=== PATIENT | male | born 1980 | race Two or more races ===

== ENCOUNTER 2018-01-25 06:49 | Day surgery (SDC) | payer OTHER ==
[2018-01-25] VITALS (8 sets, daily range): BP systolic 112–126; BP diastolic 70–78
[~2018-01-25] VITALS: Ht 188 cm; Wt 79.4 kg
[~2018-01-25 06:49] MED LIST: OMEPRAZOLE40 M1 ORAL; ONDANSETRON HCL4 M1 ORAL
[2018-01-25] MEDS ORDERED: Midazolam 2mg/2ml Inj IVP PRN (07:00)
[2018-01-25] MEDS ORDERED: DiphenhydrAMINE 50mg/ml Inj IVP PRN (07:00)
[2018-01-25] MEDS ORDERED: LR 1000ml 1,000 ML IVLG SCH (07:00)
[2018-01-25] MEDS ORDERED: fentaNYL 100 mcg/2 mL IV PRN (07:00)
[2018-01-25] MEDS ORDERED: Atropine Inj 1mg/10ml Syr IV PRN (07:00)
--- NOTE | 2018-01-25 07:00 | Anethesia Preoperative Eval ---
Anesthesia Pre-op PMH/ROS General Date of Evaluation: Jan 25, 2018 Time of Evaluation: 06:57 Anesthesiologist: franky ASA Score: ASA 2 Mallampati Score Class I : Soft palate, uvula, fauces, pillars visible Class II: Soft palate, uvula, fauces visible Class III: Soft palate, base of uvula visible Class IV: Only hard plate visible Mallampati Classification: Class II Surgeon: mirta Diagnosis: gerd Surgical Procedure: egd Anesthesia History: none Social History: smoking - nonsmoker Family History: no anesthesia problems Allergies: Coded Allergies: No Known Allergies (Unverified , 01/24/18) Medications: see eMAR Patient NPO?: Yes Past Medical History Gastrointestinal/Genitourinary: Reports: GERD, other - weight loss, left inguinal hernia, vomiting x one year Neurologic/Psychiatric: Reports: depression/anxiety, other - head trauma, concussion Musculoskeletal/Integumentary: Reports: other - lumbar surgery Anesthesia Pre-op Phys. Exam Physician Exam Last Vital Signs Date Time Temp Pulse Resp B/P (MAP) Pulse Ox O2 Delivery O2 Flow Rate FiO2 01/25/18 07:13 Room Air 01/25/18 07:11 97.7 70 18 126/76 99 Constitutional: NAD Neurologic: CN 2-12 intact Cardiovascular: RRR Respiratory: CTA Gastrointestinal: S/NT/ND Airway Exam Mallampati Score: Class II MO: full Neck: flexible TMD: 2fb ROM: full Teeth: intact Anesthesia Pre-op A/P Risk Assessment & Plan Assessment: asa2 Plan: mac Status Change Before Surgery: No Pre-Antibiotics Drug: Juli Ward MD Jan 25, 2018 07:00
[2018-01-25] MEDS ORDERED: LR 1000ml ONE (07:30)
[2018-01-25] MEDS ORDERED: Lidocaine 1% MPF 10mg/ml 5ml ONE (07:30)
[2018-01-25] MEDS ORDERED: Propofol 200mg/20ml IV ONE (07:30)
--- NOTE | 2018-01-25 07:47 | Short Stay Surgery H&P ---
History of Present Illness History of Present Illness Chief Complaint Patient has had abdominal pains and acid reflux symptoms. KEITH Shea is a 37 year old male who was admitted on for GERDS/abdominal pains Patient History Allergies: Coded Allergies: No Known Allergies (Unverified , 01/24/18) PAST MEDICAL HISTORY: (1) The administrative codes within the [employer] content you are accessing may have as of 11/12/2017. Please contact your IT Dept/Help Desk and request the latest Regulatory release be installed. IT Dept/Help Desk- Please refer to our FAQ page ([email or web address]) or contact [employer] Customer Support at [email or web address] (2) Lumbar disc lesion Medication History Scheduled Omeprazole (Omeprazole), 40 MG ORAL DAILY, (Reported) Scheduled PRN Ondansetron Hcl (Ondansetron Hcl), 4 MG ORAL Q6H PRN for Nausea & Vomiting, ( Reported) Review of Systems Cardiovascular: Reports: no symptoms Respiratory: Reports: no symptoms Skeletal: Reports: trauma Gastrointestinal: Reports: gastro esophageal reflux disease Genitourinary: Reports: no symptoms Neurologic: Reports: no symptoms Endocrine: Reports: no symptoms Hematologic: Reports: no symptoms Physical Exam Vital Signs Last Vital Signs Date Time Temp Pulse Resp B/P (MAP) Pulse Ox O2 Delivery O2 Flow Rate FiO2 01/25/18 07:13 Room Air 01/25/18 07:11 97.7 70 18 126/76 99 Skin: normal HENT: normal Heart: normal Lungs: normal Abdomen: abnormal Extremities: normal Genitourinary: normal Plan Plan of Care Upper Gi endoscopy with biopsy Preop Interventions None. Summary of Findings See the reports Attestation Are the patient's medical conditions optimized for surgery? Attestation Response: yes Mel Cummings MD Jan 25, 2018 07:47
--- NOTE | 2018-01-25 07:48 | Pre-Procedure Note/Attestation ---
Pre-Procedure Note/Attestation Complete Prior to Procedure Planned Procedure: left Procedure Narrative: Endoscopic exam of the upper GI tract and biopsy Indications for Procedure Pre-Operative Diagnosis: R/O Peptic Ulcer/gastritis Attestation I attest that I discussed the nature of the procedure; its benefits; risks and complications; and alternatives (and the risks and benefits of such alternatives ), prior to the procedure, with the patient (or the patient's legal sales promotion representative). I attest that, if there was a reasonable possibility of needing a blood transfusion, the patient (or the patient's legal sales promotion representative) was given the [facility] standardized written summary, pursuant to the Zack Kiran Blood Safety Act ([place] Health and Safety Code # 1645, as amended). I attest that I re-evaluated the patient just prior to the surgery and that there has been no change in the patient's H&P, except as documented below: Mel Cummings MD Jan 25, 2018 07:48
--- NOTE | 2018-01-25 08:05 | Endoscopy Procedure Note ---
Endoscopy Procedure Note General Indication for Procedure: Abdominal oains and GERDs Procedures Performed: EGD - Completely normal GI endoscopy. A random biopsy from gastric body obtained. Specimen: yes Pt Tolerated Procedure Well: Yes Estimated Blood Loss: none Anesthesia Anesthesiologist: Dr. Rajan Anesthesia: moderate sedation Medications Medication Given: see anesthesia record Inserted Devices Implant(s) used?: No Quality Quality of Bowel Preparation: Excellent Was there any complications?: No GI Core Measures 50 yrs or older w/o bx or poly: Not Applicable 10yrs. F/U not recommended: Not Applicable If not recommended, why?: Med reason:<3 yrs.: System Reason:<3 yrs.: Mel Cummings MD Jan 25, 2018 08:05
--- NOTE | 2018-01-25 08:06 | Discharge Instructions ---
Discharge Instructions Discharge Instructions Follow up with: Visit the doctor in office after 2 weeks. For Congestive Heart Failure Reminder Report to your physician any weight gain of 5 pounds or more in one week. Mel Cummings MD Jan 25, 2018 08:06
--- NOTE | 2018-01-25 08:24 | Immediate Post-Op Evaluation ---
Immediate Post-Op Evalulation Immediate Post-Op Evalulation Procedure: egd w/bx Date of Evaluation: Jan 25, 2018 Time of Evaluation: 08:24 IV Fluids: lr 450ml Blood Products: none Estimated Blood Loss: negligible Blood Pressure Systolic: 124 Blood Pressure Diastolic: 78 Pulse Rate: 58 Respiratory Rate: 18 O2 Sat by Pulse Oximetry: 99 Temperature (Fahrenheit): 97.7 Pain Score (1-10): 0 Nausea: No Vomiting: No Complications none Patient Status: awake, reacts, patent Hydration Status: adequate Drug: Juli Ward MD Jan 25, 2018 08:24
--- NOTE | 2018-01-25 08:26 | 48 Hour Post Anesthesia Eval ---
Post Anesthesia Evaluation Procedure: egd w/bx Date of Evaluation: Jan 25, 2018 Time of Evaluation: 08:26 Blood Pressure Systolic: 122 0: 82 Pulse Rate: 58 Respiratory Rate: 18 Temperature (Fahrenheit): 97.7 O2 Sat by Pulse Oximetry: 99 Airway: patent Nausea: No Vomiting: No Pain Intensity: 0 Hydration Status: adequate Cardiopulmonary Status: stable Mental Status/LOC: patient returned to baseline Post-Anesthesia Complications: none Follow-up care needed: N/A Juli Thacker MD Jan 25, 2018 08:26
--- NOTE | 2018-01-25 18:00 | Pre-op HX & Phy Repo 2 SIG ---
DATE OF ADMISSION: 01/25/2018 HISTORY OF PRESENT ILLNESS: The patient is a 37-year-old gentleman, who is being seen prior to undergoing the procedure of upper GI endoscopy for which, he has been scheduled to receive for evaluation of his gastrointestinal symptoms that he has developed subsequent to his work injury. 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 However, he lifted heavy object and subsequently started to experience significant pain over the lower dorsal lumbar area and received MRI examination and finally was diagnosed to have disk disease and was operated as such. He also was prescribed multiple medications including strong analgesics and anti-inflammatory agents such as ibuprofen, etc. At this time, he is reporting that since he was injured and was given different medications, he started to have nausea, vomiting, lack of appetite, and lost significant amount of weight approximately 50 pounds. As he had developed significant anxiety and stress, he has been seen by psychologist and his major problem at this time has been significant depression, which affects his appetite and his daily activities. He also reported that he started to use the cannabis and marijuana for his vomiting as well. He denies any hematemesis, melena, hematochezia, or GI bleeding. As I mentioned, he has lost weight because he had lost his appetite. Therefore, the applicant has been scheduled to undergo the procedure of upper GI endoscopy to rule out basically acid-induced gastropathy, which might be responsible for his upper GI symptoms. PAST MEDICAL HISTORY: Basically none significant. He denies hypertension, hyperlipidemia, diabetes, etc. PAST SURGICAL HISTORY: The applicant has had history of inguinal hernia operation and also disc operation for dorsal lumbar pathology as I mentioned with fusion also. These procedures have been done in 2009 and 2012. ALLERGIES: Nonsignificant. Childhood disease as usual. HABITS: The applicant reports that he drinks occasionally beer and he does not smoke. FAMILY HISTORY: None significant. REVIEW OF SYSTEMS: Basically history of present illness, otherwise unremarkable. PHYSICAL EXAM: GENERAL: Reveals an alert and oriented gentleman, does not seem to be in any acute distress. VITAL SIGNS: All stable. HEENT: Normocephalic. Pupils equal in size and reactive to light and accommodation. No jaundice. Buccal cavity, tongue midline, well hydrated. No ulcers. NECK: Supple. No JVD, thyromegaly, or adenopathy. CHEST: Clear to auscultation and percussion. No rales or rhonchi. HEART: S1, S2 normal. Regular rhythm. No gallops or murmur. ABDOMEN: Soft. There is mild tenderness and nonspecific over the different parts of the abdomen, but very mild. As I mentioned, there is no organomegaly and no masses noted. EXTREMITIES: Unremarkable. SKIN AND LYMPHATICS: Unremarkable. PRELIMINARY PREOPERATIVE IMPRESSION: 1. History of nausea and periodic vomiting of uncertain etiology, rule out NSAID-induced gastropathy, rule out peptic ulcer disease, gastritis, etc. 2. Significant nausea and lack of appetite and weight loss of uncertain etiology, rule out possibly related to psychological factors, depression caused by the history of work accident. 3. Gastroesophageal acid reflux aggravated by side effects of NSAID medications. 4. Anxiety and depression. 5. History of bodily injury of dorsolumbar disc status post operation. RECOMMENDATION: This gentleman, at this time, seems to be stable to undergo the procedure of upper GI endoscopy for which he has been scheduled to receive for further evaluation of his possible causes of condition that could help reduce significant loss of appetite and weight loss with nausea and vomiting episodes. He understands the risks and benefits and will sign the consent. Said Gomez Cummings DR: LOPEZ JOB#: [id number] CC: LILIANA
--- NOTE | 2018-01-25 18:00 | Operative Note - Dictated ---
DATE OF OPERATION: 01/25/2018 SURGEON: Mel Cummings M.D. PROCEDURE: Esophagogastroduodenoscopy with biopsy. PREOPERATIVE DIAGNOSES: Abdominal pain, nausea, vomiting, heartburn, and significant weight loss. POSTOPERATIVE DIAGNOSIS: Completely normal upper GI endoscopy. Biopsy was taken per random from gastric body. MEDICATION USED: Per Dr. Rajan, anesthesiologist. INSTRUMENT: GIF Olympus upper GI video endoscope. DESCRIPTION OF PROCEDURE: The patient after arriving at endoscopy unit, was told about risks and benefits of the procedure, which he accepted and signed informed consent. He was then put on the left lateral decubitus position. After adequate IV sedation, the scope was gently passed through the cricopharyngeal area, was lodged into the upper esophagus and gradually advanced towards gastroesophageal junction. The entire length of esophagus looked completely normal without any pathology. GE junction also was likewise completely normal. No evidence of hiatal hernia or Benjamin's. At this time, the scope was advanced into the stomach and gastric cavity was distended with insufflation of air. The areas of the fundus and the body and the antrum were examined in an electrician apprentice powerhouse fashion, which revealed basically normal mucosal coverage without any ulcers, tumors, polyps, strictures, bleeding sites, etc. A retroflexion maneuver was also applied and the gastroesophageal junction was examined in a closer fashion, which also revealed no pathology. Finally, one random biopsy from gastric body was obtained and subsequently, the scope was passed through the body of the stomach and from pyloric area. First and second portion of duodenum were all found to be completely normal. At this time, the scope was pulled out and the procedure was terminated. The patient tolerated the procedure well and left the endoscopy room in a good condition. Mel Cummings M.D. DR: LOPEZ JOB#: [id number] CC:
== END 2018-01-25 09:55 | disposition home or self-care (01) ==
LOC: GAS 06:49
DX: K29.50 Unspecified chronic gastritis without bleeding (principal); K21.9 Gastro-esophageal reflux disease without esophagitis; R11.2 Nausea with vomiting, unspecified; R12 Heartburn; R63.4 Abnormal weight loss; F41.9 Anxiety disorder, unspecified; F32.9 Major depressive disorder, single episode, unspecified
CPT/HCPCS: 94003; 94150